=== PATIENT | female | born 1965 | race African-American/Black ===

== ENCOUNTER 2017-11-17 10:54 | Emergency (ER) | payer MEDICAID, OTHER ==
[~2017-11-17] VITALS: Ht 162.6 cm; Wt 73.0 kg
[~2017-11-17 10:54] MED LIST: ALBU17AE26
[2017-11-17 12:45] LABS: EOSINOPHILS % 1.1 % (0.0-5.0); HEMATOCRIT. 42.2 % (36.0-48.0); HEMOGLOBIN. 14.4 g/dL (12.0-16.0); MEAN CORPUSCULAR HEMOGLOBIN 31.1 pg (28.0-32.0); MEAN CORPUSCULAR VOLUME 91.3 fL (81.0-99.0); MEAN PLATELET VOLUME 9.4 fl (7.4-10.4); MONOCYTES % 8.7 % (2.0-8.0); NEUTROPHILS % 49.2 % (40.0-76.0); PLATELET 208 x1000/uL (130-400); RED BLOOD CELL COUNT 4.62 mill/uL (4.2-5.4)
[2017-11-17 12:47] LABS: CHLORIDE 110 mEq/L (98-107)
[2017-11-17] MEDS ORDERED: MORPHINE SULFATE 2 MG/ML CPJ (NOT FOR IM USE) IV ONE (13:30)
[2017-11-17] MEDS ORDERED: SODIUM CHLORIDE 0.9% 1,000 ML IV ONE (13:30)
[2017-11-17] MEDS ORDERED: KETOROLAC 30MG/ML VIAL IV ONE (13:30)
[2017-11-17 14:25] VITALS: BP 168/98
[2017-11-17] MEDS ORDERED: ONDANSETRON HCL 4MG/2ML VIAL IV ONE (15:15)
== END 2017-11-17 16:51 | disposition left against medical advice (07) ==
LOC: ER 11:09
DX: N93.8 Other specified abnormal uterine and vaginal bleeding (principal); N88.8 Other specified noninflammatory disorders of cervix uteri; D25.9 Leiomyoma of uterus, unspecified; Z88.2 Allergy status to sulfonamides; Z90.49 Acquired absence of other specified parts of digestive tract
CPT/HCPCS: 36415; 76830; 76856; 80053; 85025; 86850; 86900; 86901; 96374; 96375; 99285; J1885; J2270; J2405; J7030; Z7610

== ENCOUNTER 2017-11-17 17:17 | Emergency (ER) | payer OTHER ==
[~2017-11-17] VITALS: Ht 165.1 cm; Wt 75.0 kg
[2017-11-17] MEDS ORDERED: MORPHINE SULFATE 4 MG/ML CPJ (NOT FOR IM USE) IV STA (18:36)
[2017-11-17] MEDS ORDERED: SODIUM CHLORIDE 0.9% 1,000 ML IV ONE (18:36)
[2017-11-17] MEDS ORDERED: ONDANSETRON HCL 4MG/2ML VIAL IV STA (18:52)
[2017-11-17] MEDS ORDERED: DIPHENHYDRAMINE 50MG/ML VIAL IV STA (18:52)
[2017-11-17 19:47] LABS: BASOPHILS % 0.6 % (0.0-2.0); HEMATOCRIT. 41.8 % (36.0-48.0); HEMOGLOBIN. 14.1 g/dL (12.0-16.0); LYMPHOCYTES % 14.8 % (20.0-50.0); MEAN CORPUSCULAR VOLUME 91.9 fL (81.0-99.0); MONOCYTES % 5.8 % (2.0-8.0); NEUTROPHILS % 78.8 % (40.0-76.0); PLATELET 191 x1000/uL (130-400); RED BLOOD CELL COUNT 4.55 mill/uL (4.2-5.4); RED CELL DISTRIBUTION WIDTH 14.1 % (11.6-14.6)
[2017-11-17 19:50] LABS: CHLORIDE 114 mEq/L (98-107)
[2017-11-17 19:52] LABS: HCG SCREEN NEGATIVE
[2017-11-17 19:55] LABS: ETHANOL BLOOD < 10 mg/dL
[2017-11-17 20:22] LABS: CLARITY URINE CLEAR (CLEAR); COLOR URINE YELLOW (YELLOW); KETONES URINE 4+ (NEGATIVE); LEUKOCYTE ESTERASE URINE TRACE (NEGATIVE); NITRITE URINE NEGATIVE (NEGATIVE); OCCULT BLOOD URINE 2+ (NEGATIVE); PROTEIN URINE 1+ (NEGATIVE); SPECIFIC GRAVITY URINE 1.026 (1.005-1.030)
[2017-11-17 20:32] LABS: *BENZODIAZEPINES SCREEN URINE NEGATIVE (NEGATIVE); *COCAINE SCREEN URINE NEGATIVE (NEGATIVE); METHADONE URINE SCREEN NEGATIVE (NEGATIVE)
[2017-11-17 20:33] LABS: *AMPHETAMINES SCREEN URINE NEGATIVE (NEGATIVE); *BARBITURATES SCREEN URINE NEGATIVE (NEGATIVE); CANNABINOID URINE SCREEN PRESUMTIVE POSITIVE (NEGATIVE); OPIATES URINE SCREEN PRESUMTIVE POSITIVE (NEGATIVE); PHENCYCLIDINE URINE SCREEN NEGATIVE (NEGATIVE)
[2017-11-17] MEDS ORDERED: CEFTRIAXONE 1 G PREMIX 50 ML IV NR (21:45)
[2017-11-17 21:52] LABS: INR 1.3; PROTHROMBIN TIME 13.4 sec (9.4-11.6)
[2017-11-17] MEDS ORDERED: KETOROLAC 30MG/ML VIAL IV STA (22:25)
[2017-11-17 22:40] VITALS: BP 129/78
== END 2017-11-17 22:40 | disposition home or self-care (01) ==
LOC: ER 17:27
DX: N39.0 Urinary tract infection, site not specified (principal); Q61.5 Medullary cystic kidney; D18.03 Hemangioma of intra-abdominal structures; K76.89 Other specified diseases of liver; N29 Other disorders of kidney and ureter in diseases classified elsewhere; E83.59 Other disorders of calcium metabolism; D25.9 Leiomyoma of uterus, unspecified; M32.9 Systemic lupus erythematosus, unspecified; Z88.2 Allergy status to sulfonamides; Z90.49 Acquired absence of other specified parts of digestive tract
CPT/HCPCS: 36415; 71045; 74176; 80053; 80305; 81003; 83690; 84703; 85025; 85610; 87086; 93005; 96374; 96375; 99285; G0482; J0696; J1200; J2270; J2405; J7030

== ENCOUNTER 2018-07-06 16:58 | Inpatient (IN) | payer OTHER ==
[~2018-07-06] VITALS: Ht 162.6 cm; Wt 74.8 kg
[2018-07-06] MEDS ORDERED: SODIUM CHLORIDE 0.9% 1000ML BAG (SEPSIS BOLUS) IV ONE (17:45)
[2018-07-06] MEDS ORDERED: PIPERACILLIN SODIUM/TAZOBACTAM 4.5 G in DEXT 5% WATER 100 ML IV SCH (17:45)
[2018-07-06] MEDS ORDERED: ONDANSETRON HCL 4MG/2ML INJ ONE (17:48)
[2018-07-06 18:31] LABS: CLARITY URINE CLOUDY (CLEAR); COLOR URINE YELLOW (YELLOW); KETONES URINE 3+ (NEGATIVE); LEUKOCYTE ESTERASE URINE TRACE (NEGATIVE); NITRITE URINE NEGATIVE (NEGATIVE); OCCULT BLOOD URINE TRACE (NEGATIVE); PH URINE 5.5 (4.5-8.0); PROTEIN URINE 3+ (NEGATIVE); SPECIFIC GRAVITY URINE 1.041 (1.005-1.030)
[2018-07-06 18:34] LABS: BASOPHILS % 0.5 % (0.0-2.0); EOSINOPHILS % 0.4 % (0.0-5.0); HEMATOCRIT. 44.5 % (36.0-48.0); HEMOGLOBIN. 14.8 g/dL (12.0-16.0); MEAN CORPUSCULAR HEMOGLOBIN 30.9 pg (28.0-32.0); MEAN CORPUSCULAR VOLUME 93.1 fL (81.0-99.0); MONOCYTES % 3.2 % (2.0-8.0); NEUTROPHILS % 82.9 % (40.0-76.0); PLATELET 189 x1000/uL (130-400); RED BLOOD CELL COUNT 4.78 mill/uL (4.2-5.4); RED CELL DISTRIBUTION WIDTH 13.5 % (11.6-14.6)
[2018-07-06 18:36] LABS: CHLORIDE 110 mEq/L (98-107); INR 1.3; PROTHROMBIN TIME 13.4 sec (9.1-11.1)
[2018-07-06] MEDS ORDERED: IOHEXOL-350 100 ML BOTTLE ONE (20:03)
[2018-07-06] MEDS ORDERED: ONDANSETRON HCL 4MG/2ML INJ IV ONE (20:30)
[2018-07-06] MEDS ORDERED: SODIUM CHLORIDE 0.9% 1,000 ML IV NR (20:37)
[2018-07-06] MEDS ORDERED: METOCLOPRAMIDE HCL 10MG/2ML VIAL IV ONE (22:30)
[2018-07-06] MEDS ORDERED: ACETAMINOPHEN 500MG TABLET PO ONE (23:45)
[2018-07-06] MEDS ORDERED: LORAZEPAM 1MG TABLET PO ONE (23:45)
[2018-07-07] MEDS ORDERED: CEFTRIAXONE 1 G PREMIX 50 ML IV SCH (01:00)
[2018-07-07] MEDS ORDERED: HYDROCODONE/ACETAMINOPHEN 5/325MG TABLET PO PRN (01:00)
[2018-07-07] MEDS ORDERED: ACETAMINOPHEN 325MG TABLET PO PRN (01:00)
[2018-07-07] MEDS ORDERED: DOCUSATE SODIUM 100MG CAPSULE PO PRN (01:00)
[2018-07-07] MEDS ORDERED: MAGNESIUM/ALUMINUM HYDROXIDE/SIMETHICONE 30ML UDC PO PRN (01:00)
[2018-07-07] MEDS ORDERED: IPRATROPIUM/ALBUTEROL 0.5-3(2.5)MG/3ML NEB INH PRN (01:00)
[2018-07-07] MEDS ORDERED: ONDANSETRON HCL 4MG/2ML INJ IV PRN (01:00)
[2018-07-07] MEDS ORDERED: CLONIDINE 0.1MG TABLET PO PRN (01:00)
[2018-07-07] MEDS ORDERED: CEFTRIAXONE 1 G PREMIX 50 ML IV NR (01:15)
[2018-07-07] MEDS ORDERED: SODIUM CHLORIDE 0.9% 1,000 ML IV SCH (01:30)
[2018-07-07 02:01] LABS: CHLORIDE 112 mEq/L (98-107)
[2018-07-07 04:15] VITALS: BP 128/70
[2018-07-07] MEDS ORDERED: ENOXAPARIN 40MG/0.4ML SYR SUBCUT SCH (09:00)
[2018-07-07] MEDS ORDERED: MAGNESIUM 2 G PREMIX 50 ML IV SCH (10:00)
[2018-07-07 10:47] VITALS: BP 128/70
[2018-07-08] MEDS ORDERED: CEFTRIAXONE 1 G PREMIX 50 ML IV SCH
== END 2018-07-07 13:25 | disposition left against medical advice (07) | DRG 48 ==
LOC: ER 17:05 → 8WST 21:39 → EDBEDREQTM 21:41 → EDBEDREQ 21:41 → EDBEDREQSVC 21:41 → ENRESERV 07-07 02:36
PROVIDERS: ADMIT Internal Medicine; ATTEND Internal Medicine
DX: G90.8 Other disorders of autonomic nervous system (principal); E83.42 Hypomagnesemia; E87.8 Other disorders of electrolyte and fluid balance, not elsewhere classified; D25.9 Leiomyoma of uterus, unspecified; E78.5 Hyperlipidemia, unspecified; I10 Essential (primary) hypertension; N39.0 Urinary tract infection, site not specified; Z53.21 Procedure and treatment not carried out due to patient leaving prior to being seen by health care provider; Z90.49 Acquired absence of other specified parts of digestive tract; Z88.2 Allergy status to sulfonamides; Z79.899 Other long term (current) drug therapy
CPT/HCPCS: 36415; 71045; 71275; 74177; 80048; 83605; 83735; 84145; 84443; 84484; 87804; 93005; 93306; 93970; 96365; 96375; 99291; J0696; J1650; J2405; J2543; J2765; J3475; J7030; J7060; Q9967

== ENCOUNTER 2019-08-26 20:15 | Emergency (ER) | payer MEDICAID, OTHER ==
[~2019-08-26] VITALS: Ht 162.6 cm; Wt 74.0 kg
[2019-08-26 20:34] VITALS: BP 159/95
== END 2019-08-27 00:05 | disposition left against medical advice (07) ==
LOC: ER 20:15
DX: R51 Headache (principal); Z53.21 Procedure and treatment not carried out due to patient leaving prior to being seen by health care provider

== ENCOUNTER 2025-05-27 00:24 | Emergency (ER) | payer MEDICAID, OTHER ==
[~2025-05-27] VITALS: Ht 162.6 cm; Wt 70.0 kg
[2025-05-27 00:32] VITALS: O2SAT 99
[2025-05-27 01:09] LABS: BASOPHILS % 0.9 % (0.0-2.0); EOSINOPHILS % 1.6 % (0.0-5.0); HEMATOCRIT. 42.3 % (36.0-48.0); HEMOGLOBIN. 14.0 g/dL (12.0-16.0); LYMPHOCYTES % 37.7 % (20.0-50.0); MEAN PLATELET VOLUME 8.2 fl (7.4-10.4); MONOCYTES % 10.2 % (2.0-8.0); NEUTROPHILS % 49.6 % (40.0-76.0); PLATELET 240 x1000/uL (130-400); RED BLOOD CELL COUNT 4.60 mill/uL (4.2-5.4); RED CELL DISTRIBUTION WIDTH 14.0 % (11.6-14.6)
[2025-05-27] MEDS ORDERED: LOPERAMIDE HCL 2MG CAPSULE PO ONE (01:30)
[2025-05-27] MEDS ORDERED: ACETAMINOPHEN 500MG TABLET PO ONE (01:30)
[2025-05-27] MEDS: ONDANSETRON HCL 4MG/2ML INJ IV ONE (01:34)
[2025-05-27] MEDS: KETOROLAC 15MG/ML VIAL IV ONE (01:35)
[2025-05-27] MEDS: FAMOTIDINE 20MG/2ML VIAL IV ONE (01:35)
[2025-05-27] MEDS: SODIUM CHLORIDE 0.9% 1,000 ML IV ONE (01:35)
[2025-05-27 02:12] LABS: TROPONIN I HIGH SENSITIVITY 4 ng/L (3.0-34)
[2025-05-27 02:44] LABS: UREA NITROGEN BLOOD 8 mg/dL (9-23)
[2025-05-27 02:46] LABS: CREATININE 0.7 mg/dL (0.6-1.0)
[2025-05-27 02:47] LABS: PROTEIN TOTAL 9.3 g/dL (6.0-8.3)
[2025-05-27 02:48] LABS: ASPARTATE AMINOTRANSFERASE 24 IU/L (<34)
[2025-05-27 02:49] LABS: BILIRUBIN DIRECT 0.1 mg/dL (<=3.0); BILIRUBIN TOTAL 0.4 mg/dL (0.1-1.0)
[2025-05-27] MEDS: LOPERAMIDE HCL 2MG CAPSULE PO NR (03:22)
[2025-05-27] MEDS: ACETAMINOPHEN 500MG TABLET PO NR (03:23)
[2025-05-27] MEDS: MORPHINE SULFATE 4 MG/ML INJ (FOR IV/IM USE) IV ONE (03:45)
[2025-05-27] MEDS ORDERED: CEFTRIAXONE 2GM/50ML 50 ML IV ONE (04:00)
[2025-05-27 04:11] LABS: CLARITY URINE CLEAR (CLEAR); COLOR URINE DARK YELLOW (YELLOW); GLUCOSE URINE NEGATIVE (NEGATIVE); KETONES URINE 1+ (NEGATIVE); LEUKOCYTE ESTERASE URINE NEGATIVE (NEGATIVE); NITRITE URINE NEGATIVE (NEGATIVE); OCCULT BLOOD URINE TRACE (NEGATIVE); PH URINE 5.5 (4.5-8.0); PROTEIN URINE 2+ (NEGATIVE); SPECIFIC GRAVITY URINE 1.025 (1.005-1.030); UROBILINOGEN URINE 1.0 E.U./dL (0.2-1.0)
[2025-05-27] MEDS ORDERED: FAMO40TA70 MT (04:51)
[2025-05-27] MEDS ORDERED: ONDA-239 PO (04:51)
[2025-05-27 05:12] VITALS: BP 146/87; PULSE 60; RESP 11; TEMP 36.9; O2SAT 99
[2025-05-27 05:31] LABS: SQUAMOUS EPITHELIAL CELL URINE FEW /lpf (RARE/1+)
[2025-05-27 05:33] LABS: BACTERIA URINE NONE SEEN; RBC URINE NONE SEEN /hpf (0-2); WBC URINE 0-2 /hpf (0-2)
== END 2025-05-27 05:27 | disposition home or self-care (01) ==
LOC: ER 00:24 → CMPBEDREQ 10:51
DX: K29.70 Gastritis, unspecified, without bleeding (principal); R10.13 Epigastric pain; R06.02 Shortness of breath; R11.2 Nausea with vomiting, unspecified; I10 Essential (primary) hypertension; J45.909 Unspecified asthma, uncomplicated; K76.89 Other specified diseases of liver; Z88.2 Allergy status to sulfonamides; Z88.5 Allergy status to narcotic agent; Z90.49 Acquired absence of other specified parts of digestive tract; Z95.0 Presence of cardiac pacemaker
CPT/HCPCS: 99285; 74176; 96374; 96375; 80076; 80048; 81003; 83880; 83690; 83735; 85025; 87040; 84484; 36415; 93005; J1885; J0696; J1308; J2405; J7030